=== PATIENT | female | born 1945 | race Caucasian/White ===

== ENCOUNTER 2016-10-25 00:23 | Emergency (ER) | payer MEDICARE ==
[~2016-10-25] VITALS: Ht 167.6 cm; Wt 74.3 kg
[~2016-10-25 00:23] MED LIST: ATEN-104 PO; BIOTCAP PO; CATALYN PO; CHOL50006 PO; CITA20 PO; CITRTAB8 PO; HYDRO25 PO; LAMO100 PO; LISI-360 PO; LORTA5 PO; MEVA40TA6 PO; NEUR100C PO; PROT40TA PO; TRAZ50TA4 PO; ZOFR4TAB3 SL
[2016-10-25 00:32] VITALS: BP 109/70; PULSE 78; RESP 16; TEMP 98.8; O2SAT 94
[2016-10-25] MEDS ORDERED: ATEN100T PO (01:24)
[2016-10-25] MEDS ORDERED: BIOTCAP PO (01:25)
[2016-10-25] MEDS ORDERED: VITA100064 PO (01:27)
[2016-10-25] MEDS ORDERED: CALC250T PO (01:27)
[2016-10-25] MEDS ORDERED: GABA300C5 PO (01:28)
[2016-10-25] MEDS ORDERED: HYDR-3516 PO (01:29)
[2016-10-25] MEDS ORDERED: LISI10TA3 PO (01:29)
[2016-10-25] MEDS ORDERED: PANT40TA3 PO (01:30)
[2016-10-25] MEDS ORDERED: CITA20TA4 PO (01:30)
[2016-10-25] MEDS ORDERED: TRAZ50TA12 PO (01:30)
[2016-10-25] MEDS ORDERED: LOVA40TA PO (01:30)
[2016-10-25] MEDS ORDERED: LAMO100T PO (01:31)
[2016-10-25] MEDS ORDERED: MELO7.5T4 PO (01:31)
[2016-10-25] MEDS ORDERED: LAMO25TA PO (01:31)
[2016-10-25] MEDS ORDERED: REST0.05 EACH EYE (01:32)
[2016-10-25] MEDS ORDERED: LYRI100C PO (01:32)
--- NOTE | 2016-10-25 01:44 | PD ---
HPI Chief Complaint: Fall Time Seen by Provider: 01:41 Travel History International Travel<30 days: No Contact w/Intl Traveler<30days: No Traveled to known affect area: No History of Present Illness HPI The patient is a 71-year-old female that fell Thursday and has right anterior rib pain since. She denies any fever or hemoptysis. She denies any shortness of breath. She has 1 spot on the anterior ribs that is tender. PFSH Past Medical History Asthma: No Blood Disorders: No Anxiety: Yes Depression: No Heart Rhythm Problems: Yes (PVC'S) Cancer: No Cardiac Catheterization: Yes (2009, [place];2012, 4 total) Cardiovascular Problems: Yes High Cholesterol: Yes Chemotherapy: No Chest Pain: Yes Congestive Heart Failure: No COPD: No Diabetes: Yes Patient Takes Glucophage: No Diminished Hearing: No Endocrine: No Gastrointestinal Disorders: Yes (GERD) GERD: Yes Gout: Yes Genitourinary: Yes (CKD STAGE 3) Hypertension: Yes Immune Disorder: No Implanted Vascular Access Dvce: No Medical other: Yes (HIGH CHOLESTEROL) Musculoskeletal: No Neurologic: No Psychiatric: No Reproductive: No Respiratory: Yes (BRONCHITIS) Immunizations Current: Yes Radiation Therapy: No Renal Failure: Yes (CHRONIC) Sleep Apnea: Yes Thyroid Disease: No Triglycerides - High: Yes Tetanus Vaccination: < 5 Years Influenza Vaccination: Yes Menopausal: Yes : 4 Para: 4 Past Surgical History Abdominal Surgery: Yes (GASTRIC BYPASS 2013) Section: Yes (X 2 ) Coronary Artery Bypass Graft: No Gynecologic Surgery: Yes (C SECTIONX2, HYSTERECTOMY) Hysterectomy: Yes Joint Replacement: No Pacemaker: No Tonsillectomy: Yes Other Surgery: Yes (RIGHT BREAST LUMPECTOMY X 2) Family History Family Myocardial Infarction: Yes Social History Alcohol Use: Yes (Occasionally) Tobacco Use: No Substance Use: No Allergies-Medications (Allergen,Severity, Reaction): Coded Allergies: Compazine (Verified Allergy, Severe, ANAPHYLAXIS, 10/25/16) Erythromycin (Verified Allergy, Severe, Colitis, 10/25/16) Lidocaine (Verified Allergy, Severe, Heart Racing, 10/25/16) IV Lidocaine Macrodantin (Verified Allergy, Severe, RASH, 10/25/16) Penicillin (Verified Allergy, Severe, WELTS, 10/25/16) Azithromycin (Verified Adverse Reaction, Intermediate, COLITIS, 10/25/16) Reported Meds & Prescriptions Reported Meds & Active Scripts Active Reported Lyrica (Pregabalin) 100 Mg Cap 100 Mg PO BID Restasis Opth Drops (Cyclosporine Opth Drops) 0.05% Emul 1 Drop EACH EYE BID Meloxicam 7.5 Mg Tab 7.5 Mg PO DAILY Lamotrigine 25 Mg Tab 25 Mg PO DAILY Lamotrigine 100 Mg Tab 100 Mg PO HS Citalopram (Citalopram Hydrobromide) 20 Mg Tab 20 Mg PO DAILY Trazodone (Trazodone HCl) 50 Mg Tab 50 Mg PO HS Pantoprazole (Pantoprazole Sodium) 40 Mg Tab 40 Mg PO DAILY Lovastatin 40 Mg Tab 40 Mg PO DAILY Lisinopril 10 Mg Tab 10 Mg PO DAILY Hydrocodone-Acetaminophen 5-325 mg Tab 1 Tab PO Q6H PRN Gabapentin 300 Mg Cap 300 Mg PO TID Vitamin D (Cholecalciferol) 1,000 Unit Tab 1,000 Units PO DAILY Calcium Citrate 250 Mg Tab 250 Mg PO QID Biotin 5 Mg Cap 5 Mg PO Atenolol 100 Mg Tab 100 Mg PO DAILY Review of Systems Except as stated in HPI: all other systems reviewed are Neg Physical Exam Narrative GENERAL: The patient is alert, oriented 3 and slight apparent distress with her right chest wall pain. SKIN: Warm and dry. HEAD: Atraumatic. Normocephalic. EYES: Pupils equal and round. No scleral icterus. No injection or drainage. ENT: No nasal bleeding or discharge. Mucous membranes pink and moist. NECK: Trachea midline. No JVD. CARDIOVASCULAR: Regular rate and rhythm. No murmur appreciated. RESPIRATORY: No accessory muscle use. Clear to auscultation. Breath sounds equal bilaterally. There is tenderness on the right anterior chest wall at 1 spot. No bony deformity is noted and no flail is noted. GASTROINTESTINAL: Abdomen soft, non-tender, nondistended. Hepatic and splenic margins not palpable. MUSCULOSKELETAL: No obvious deformities. No clubbing. No cyanosis. No edema. NEUROLOGICAL: Awake and alert. No obvious cranial nerve deficits. Motor grossly within normal limits. Normal speech. PSYCHIATRIC: Appropriate mood and affect; insight and judgment normal. Data Data Last Documented VS Vital Signs Date Time Temp Pulse Resp B/P Pulse Ox O2 Delivery O2 Flow Rate FiO2 10/25/16 02:05 61 20 197/92 99 Room Air 10/25/16 00:32 98.8 Orders Chest, Pa & Lat (10/25/16 01:41) MDM Medical Decision Making Medical Screen Exam Complete: Yes Emergency Medical Condition: Yes Medical Record Reviewed: Yes Interpretation(s) The chest x-ray shows no acute disease. Differential Diagnosis Fractured rib, chest wall contusion, pneumothoraxunlikely, flail chest at age extremely unlikely, pulmonary contusion Narrative Course The patient likely has an occult rib fracture. She is point tender on one spot on the anterior ribs but this area is not visualized on the chest x-ray because the ribs are noncalcified there. There is no evidence of pulmonary contusion, flail chest or pneumothorax. Diagnosis Primary Impression: Chest wall contusion Additional Instructions: As we discussed, cough and deep breathe at home because this is your lungs clean themselves out. If you start having high fevers or shortness of breath he may have a pneumonia or collapsed lung. Your chest x-ray is normal tonight. Take the hydrocodone that you have at home. Disposition: 01 DISCHARGE HOME Condition: Stable Pramod Hoang MD Oct 25, 2016 01:44
[2016-10-25 02:05] VITALS: BP 197/92; PULSE 61; RESP 20; O2SAT 99
--- NOTE | 2016-10-25 02:24 | RADHPO ---
EXAM DATE/TIME: 10/25/2016 02:06 [facility] COMPARISON: No previous studies available for comparison. INDICATIONS : Right anterior chest pain post fall from chair. MEDICAL HISTORY : None. SURGICAL HISTORY : None. ENCOUNTER: Initial ACUITY: 3 days PAIN SCORE: 7/10 LOCATION: Right chest FINDINGS: PA and lateral views of the chest demonstrate the lungs to be symmetrically aerated without evidence of mass, infiltrate or effusion. The cardiomediastinal contours are unremarkable. Osseous structure s are intact. CONCLUSION: No acute disease. Roderick Mcdermott Jr., MD on October 25, 2016 at 2:22 Board Certified Radiologist. This report was verified electronically.
[2016-10-25] MEDS ORDERED: SODIUM CHLOR 0.9% 1000 ML INJ 1,000 ML IV SCH (02:52)
[2016-10-25] MEDS ORDERED: ONDANSETRON HCL 4 MG/2 ML VIAL IVP ONE (03:00)
[2016-10-25] MEDS ORDERED: SODIUM CHLORIDE 0.9% FLUSH 10 ML FLUSH IV FLUSH PRN (03:00)
[2016-10-25 03:01] VITALS: BP 150/76; PULSE 85; RESP 18; O2SAT 98
== END 2016-10-25 03:13 | disposition home or self-care (01) ==
LOC: PHED 00:23
DX: S20.211A Contusion of right front wall of thorax, initial encounter (principal); W19.XXXA Unspecified fall, initial encounter
CPT/HCPCS: 71020; 99283

== ENCOUNTER 2017-09-14 14:22 | Observation (INO) | payer MEDICARE ==
[~2017-09-14] VITALS: Ht 167.6 cm; Wt 73.0 kg
[~2017-09-14 14:22] MED LIST changes: -ATEN-104 PO; +ATEN100T PO; +CALC250T PO; -CATALYN PO; -CHOL50006 PO; -CITA20 PO; +CITA20TA4 PO; -CITRTAB8 PO; +GABA300C5 PO; +HYDR-3516 PO; -HYDRO25 PO; -LAMO100 PO; +LAMO100T PO; +LAMO25TA PO; -LISI-360 PO; +LISI10TA3 PO; -LORTA5 PO; +LOVA40TA PO; +LYRI100C PO; +MELO7.5T27 PO; -MEVA40TA6 PO; -NEUR100C PO; +PANT40TA3 PO; -PROT40TA PO; +REST0.05 EACH EYE; +TRAZ50TA12 PO; -TRAZ50TA4 PO; +VITA100064 PO; -ZOFR4TAB3 SL
[2017-09-14 14:24] VITALS: BP 136/64; PULSE 64; RESP 15; TEMP 98.3; O2SAT 100
[2017-09-14 16:00] VITALS: O2SAT 100
--- NOTE | 2017-09-14 16:12 | PD ---
HPI Chief Complaint: Dizziness Time Seen by Provider: 15:39 Travel History International Travel<30 days: No Contact w/Intl Traveler<30days: No Traveled to known affect area: No History of Present Illness HPI 72-year-old female here for evaluation of intermittent episodes of lightheadedness/dizziness/chest tightness over the last 2 weeks. The patient reports having near-syncopal episodes over the last 2 weeks, however has not actually syncopized. No fevers, chills, cough, or recent illness. At time of my assessment the patient reports feeling well. No chest pain or dyspnea. She denies dysuria or urinary frequency. She reports that she had a cardiac catheter 2 years ago which was reportedly normal. No paresthesias or motor deficits. No visual disturbances. No melena or hematochezia. PFSH Past Medical History Asthma: No Blood Disorders: No Anxiety: Yes Depression: No Heart Rhythm Problems: Yes (PVC'S) Cancer: No Cardiac Catheterization: Yes (2009, [place];2012, 4 total) Cardiovascular Problems: Yes (HTN) High Cholesterol: Yes Chemotherapy: No Chest Pain: Yes Congestive Heart Failure: No COPD: No Diabetes: Yes Patient Takes Glucophage: No Diminished Hearing: No Endocrine: No Gastrointestinal Disorders: Yes (GERD) GERD: Yes Gout: Yes Genitourinary: Yes (CKD STAGE 3) Hypertension: Yes Immune Disorder: No Implanted Vascular Access Dvce: No Medical other: Yes (HIGH CHOLESTEROL) Musculoskeletal: No Neurologic: No Psychiatric: No Reproductive: No Respiratory: Yes (BRONCHITIS) Immunizations Current: Yes Radiation Therapy: No Renal Failure: Yes (CHRONIC) Sleep Apnea: Yes Thyroid Disease: No Triglycerides - High: Yes Tetanus Vaccination: < 5 Years Influenza Vaccination: Yes ?: Not Menopausal: Yes : 4 Para: 4 Past Surgical History Abdominal Surgery: Yes (GASTRIC BYPASS 2014) Section: Yes (X 2 ) Coronary Artery Bypass Graft: No Gynecologic Surgery: Yes (C SECTIONX2, HYSTERECTOMY) Hysterectomy: Yes Joint Replacement: No Pacemaker: No Tonsillectomy: Yes Other Surgery: Yes (RIGHT BREAST LUMPECTOMY X 2) Family History Family Myocardial Infarction: Yes Social History Alcohol Use: Yes (Occasionally) Tobacco Use: No Substance Use: No Allergies-Medications (Allergen,Severity, Reaction): Coded Allergies: erythromycin base (Unverified Allergy, Severe, Colitis, 09/14/17) lidocaine (Unverified Allergy, Severe, Heart Racing, 09/14/17) IV Lidocaine nitrofurantoin (Unverified Allergy, Severe, RASH, 09/14/17) penicillin G (Unverified Allergy, Severe, WELTS, 09/14/17) prochlorperazine (Unverified Allergy, Severe, ANAPHYLAXIS, 09/14/17) azithromycin (Unverified Adverse Reaction, Intermediate, COLITIS, 09/14/17) Reported Meds & Prescriptions Reported Meds & Active Scripts Active Reported B12 (Cyanocobalamin) 1,000 Mcg Tab [Calcium] 120 Mg PO DAILY [Bariatric vitamin] 1 Tab PO TID Meloxicam 7.5 Mg Tab 7.5 Mg PO DAILY Lamotrigine 25 Mg Tab 25 Mg PO DAILY Lamotrigine 100 Mg Tab 100 Mg PO HS Citalopram (Citalopram Hydrobromide) 20 Mg Tab 20 Mg PO DAILY Trazodone (Trazodone HCl) 50 Mg Tab 50 Mg PO HS Pantoprazole (Pantoprazole Sodium) 40 Mg Tab 40 Mg PO DAILY Lovastatin 40 Mg Tab 40 Mg PO DAILY Lisinopril 10 Mg Tab 10 Mg PO DAILY Gabapentin 300 Mg Cap 300 Mg PO QID Atenolol 100 Mg Tab 100 Mg PO DAILY PRN Review of Systems Except as stated in HPI: all other systems reviewed are Neg Physical Exam Narrative GENERAL: Well-developed, well-nourished, comfortable, no acute distress. SKIN: Focused skin assessment warm/dry. Diffuse pallor. HEAD: Atraumatic. Normocephalic. EYES: Pupils equal and round. No scleral icterus. No injection or drainage. ENT: Mucous membranes pink and moist. NECK: Trachea midline. No JVD. CARDIOVASCULAR: Regular rate and rhythm. RESPIRATORY: No accessory muscle use. Clear to auscultation. Breath sounds equal bilaterally. GASTROINTESTINAL: Abdomen soft, non-tender, nondistended. MUSCULOSKELETAL: No obvious deformities. No clubbing. No cyanosis. No edema. NEUROLOGICAL: Awake and alert. No obvious cranial nerve deficits. Motor grossly within normal limits. Normal speech. No focal deficits. PSYCHIATRIC: Appropriate mood and affect; insight and judgment normal. Data Data Last Documented VS Vital Signs Date Time Temp Pulse Resp B/P (MAP) Pulse Ox O2 Delivery O2 Flow Rate FiO2 09/14/17 19:16 62 12 187/90 (122) 100 Room Air 09/14/17 14:24 98.3 Orders Orders Electrocardiogram (09/14/17 16:05) Complete Blood Count With Diff (09/14/17 16:05) Comprehensive Metabolic Panel (09/14/17 16:05) Ckmb (Isoenzyme) Profile (09/14/17 16:05) Troponin I (09/14/17 16:05) Act Partial Throm Time (Ptt) (09/14/17 16:05) Prothrombin Time / Inr (Pt) (09/14/17 16:05) Urinalysis - C+S If Indicated (09/14/17 16:05) Ecg Monitoring (09/14/17 16:05) Iv Access Insert/Monitor (09/14/17 16:05) Oximetry (09/14/17 16:05) Sodium Chloride 0.9% Flush (Ns Flush) (09/14/17 16:15) Sodium Chlorid 0.9% 500 Ml Inj (Ns 500 M (09/14/17 17:15) Ct Brain W/O Iv Contrast(Rout) (09/14/17 ) Lisinopril (Prinivil) (09/14/17 19:30) Aspirin Chew (Aspirin Chew) (09/14/17 19:30) Labs Laboratory Tests Test 09/14/17 16:30 White Blood Count 9.4 TH/MM3 Red Blood Count 4.05 MIL/MM3 Hemoglobin 10.9 GM/DL Hematocrit 32.2 % Mean Corpuscular Volume 79.3 FL Mean Corpuscular Hemoglobin 26.8 PG Mean Corpuscular Hemoglobin Concent 33.8 % Red Cell Distribution Width 17.0 % Platelet Count 258 TH/MM3 Mean Platelet Volume 7.9 FL Neutrophils (%) (Auto) 61.9 % Lymphocytes (%) (Auto) 28.2 % Monocytes (%) (Auto) 6.7 % Eosinophils (%) (Auto) 2.1 % Basophils (%) (Auto) 1.1 % Neutrophils # (Auto) 5.8 TH/MM3 Lymphocytes # (Auto) 2.7 TH/MM3 Monocytes # (Auto) 0.6 TH/MM3 Eosinophils # (Auto) 0.2 TH/MM3 Basophils # (Auto) 0.1 TH/MM3 CBC Comment DIFF FINAL Differential Comment Prothrombin Time 10.0 SEC Prothromb Time International Ratio 1.0 RATIO Activated Partial Thromboplast Time 24.2 SEC Urine Color YELLOW Urine Turbidity SLIGHT Urine pH 5.5 Urine Specific [place] 1.021 Urine Protein NEG mg/dL Urine Glucose (UA) NEG mg/dL Urine Ketones TRACE mg/dL Urine Occult Blood NEG Urine Nitrite NEG Urine Bilirubin NEG Urine Leukocyte Esterase TRACE Urine WBC 0-2 /hpf Urine Squamous Epithelial Cells 0-5 /hpf Urine Calcium Oxalate Crystals MANY /hpf Urine Amorphous Sediment MOD Urine Mucus FEW /lpf Microscopic Urinalysis Comment CULT NOT INDICATED Blood Urea Nitrogen 22 MG/DL Creatinine 1.50 MG/DL Random Glucose 104 MG/DL Total Protein 7.3 GM/DL Albumin 3.8 GM/DL Calcium Level 8.4 MG/DL Alkaline Phosphatase 101 U/L Aspartate Amino Transf (AST/SGOT) 22 U/L Alanine Aminotransferase (ALT/SGPT) 13 U/L Total Bilirubin 0.2 MG/DL Sodium Level 137 MEQ/L Potassium Level 3.6 MEQ/L Chloride Level 104 MEQ/L Carbon Dioxide Level 24.7 MEQ/L Anion Gap 8 MEQ/L Estimat Glomerular Filtration Rate 34 ML/MIN Total Creatine Kinase 50 U/L Troponin I LESS THAN 0.02 NG/ML [facility] Medical Decision Making Medical Screen Exam Complete: Yes Emergency Medical Condition: Yes Medical Record Reviewed: Yes Interpretation(s) EKG: Sinus, rate 58, normal axis, normal intervals, occasional PVC, slight ST depression and T-wave inversions in precordial leads, unchanged from prior. Differential Diagnosis Anemia, metabolic abnormality, UTI, ACS, electrolyte abnormality Narrative Course Initial vital signs show heart rate 64, blood pressure 136/64, pulse ox 100% on room air, oral temp of 98.3F. CBC: WBC 9.4, hemoglobin 10.9, hematocrit 32.2, platelets 258. CMP is remarkable for BUN 22, creatinine 1.5, GFR 34, otherwise unremarkable. Cardiac enzymes are negative. UA shows oxalate crystals, not suggestive of UTI. CT head: Normal exam for patient of this age. When the patient returned from CT her blood pressure was notably elevated. She was complaining of headache and substernal chest discomfort. She does have an unusual EKG with T-wave inversions and ST depressions in her precordial leads, however these were present on prior EKGs. Patient is very concerned about her heart, stating that she is having occasional pains that radiate up into her jaw and neck. She was given a dose of lisinopril as she is on lisinopril for her elevated blood pressure here in the emergency department. She will be given a dose of aspirin and admitted to the chest pain center for further cardiac evaluation. Case discussed with hospitalist Dr. Romero who will admit the patient to the hospitalist service. Diagnosis Primary Impression: Chest pain Qualified Codes: R07.9 - Chest pain, unspecified Additional Impression: Uncontrolled hypertension Admitting Information Admitting Physician Requests: Rashid Moncada MD Sep 14, 2017 16:12
[2017-09-14] MEDS ORDERED: SODIUM CHLORIDE 0.9% FLUSH 10 ML FLUSH IVF PRN (16:15)
[2017-09-14] MEDS ORDERED: Bariatric vitamin PO (16:27)
[2017-09-14] MEDS ORDERED: Calcium PO (16:27)
[2017-09-14] MEDS ORDERED: CYAN1TAB24 (16:27)
[2017-09-14 16:50] LABS: AUTOMATED NEUTROPHIL # 5.8 TH/MM3 (1.8-7.7); BASOPHIL # 0.1 TH/MM3 (0-0.2); BASOPHIL % 1.1 % (0.0-2.0); EOSINOPHIL # 0.2 TH/MM3 (0-0.4); EOSINOPHIL % 2.1 % (0.0-4.0); HEMATOCRIT 32.2 % (35.0-46.0); HEMOGLOBIN 10.9 GM/DL (11.6-15.3); LYMPH % 28.2 % (9.0-44.0); LYMPHOCYTE # 2.7 TH/MM3 (1.0-4.8); MEAN CELL VOLUME 79.3 FL (80.0-100.0); MEAN CORPUSCULAR HEMOGLOBIN 26.8 PG (27.0-34.0); MEAN CORPUSCULAR HGB CONC 33.8 % (32.0-36.0); MEAN PLATELET VOLUME 7.9 FL (7.0-11.0); MONO % 6.7 % (0.0-8.0); MONOCYTE # 0.6 TH/MM3 (0-0.9); NEUT % 61.9 % (16.0-70.0); PLATELET COUNT 258 TH/MM3 (150-450); RED BLOOD COUNT 4.05 MIL/MM3 (4.00-5.30); WHITE BLOOD COUNT 9.4 TH/MM3 (4.0-11.0)
[2017-09-14 16:56] LABS: BILIRUBIN, URINE NEG (NEG); BLOOD, URINE NEG (NEG); GLUCOSE,URINE NEG (NEG); KETONE, URINE TRACE mg/dL (NEG); NITRITE,URINE NEG (NEG); PH, URINE 5.5 (5.0-8.5); URINE LEUKOCYTE ESTERASE TRACE (NEG)
[2017-09-14 17:00] LABS: CHLORIDE 104 MEQ/L (98-107); SODIUM (NA) 137 MEQ/L (136-145)
[2017-09-14 17:03] LABS: CALCIUM 8.4 MG/DL (8.5-10.1)
[2017-09-14 17:04] LABS: ALBUMIN 3.8 GM/DL (3.4-5.0); BICARBONATE 24.7 MEQ/L (21.0-32.0); BLOOD UREA NITROGEN 22 MG/DL (7-18); GLUCOSE,RANDOM 104 MG/DL (74-106)
[2017-09-14 17:07] LABS: ALT (GPT) 13 U/L (10-53); AST (GOT) 22 U/L (15-37); GLOMERULAR FILTRATION RATE 34 ML/MIN (>89)
[2017-09-14 17:08] LABS: TOTAL BILIRUBIN ADULT 0.2 MG/DL (0.2-1.0); TOTAL PROTEIN 7.3 GM/DL (6.4-8.2)
[2017-09-14 17:10] LABS: ALKALINE PHOSPHATASE 101 U/L (45-117)
[2017-09-14 17:11] LABS: MUCUS URINE FEW /lpf (OCC); URINE COLOR YELLOW (YELLW/STRAW); WBC, URINE 0-2 /hpf (0-5)
[2017-09-14 17:12] LABS: AMORPHOUS SEDIMENT, URINE MOD; CALCIUM OXALATE CRYSTALS,URINE MANY /hpf; SQUAMOUS EPITHELIAL CELL URINE 0-5 /hpf (0-5); TROPONIN I LESS THAN 0.02 NG/ML (0.02-0.05)
[2017-09-14] MEDS ORDERED: SODIUM CHLORID 0.9% 500 ML INJ 500 ML IV ONE (17:15)
--- NOTE | 2017-09-14 18:33 | RADRPT ---
EXAM DATE/TIME: 09/14/2017 18:18 [facility] COMPARISON: No previous studies available for comparison. INDICATIONS : Intermittent dizziness and low blood pressure for two weeks. RADIATION DOSE: 63.87 CTDIvol (mGy) MEDICAL HISTORY : Hypertension. Renal failure, chronic. Hypercholesterolemia. SURGICAL HISTORY : Hysterectomy. ENCOUNTER: Initial ACUITY: 2 weeks PAIN SCALE: 0/10 LOCATION: cranial TECHNIQUE: Multiple contiguous axial images were obtained of the head. Using automated exposure control and adj ustment of the mA and/or kV according to patient size, radiation dose was kept as low as reasonably a chievable to obtain optimal diagnostic quality images. DICOM format image data is available electro nically for review and comparison. FINDINGS: CEREBRUM: The ventricles are normal for age. No evidence of midline shift, mass lesion, hemorrhage or acute in farction. No extra-axial fluid collections are seen. POSTERIOR FOSSA: The cerebellum and brainstem are intact. The 4th ventricle is midline. The cerebellopontine angle i s unremarkable. EXTRACRANIAL: The visualized portion of the orbits is intact. SKULL: The calvaria is intact. No evidence of skull fracture. CONCLUSION: Normal examination for a patient of this age. Fredo Lemos MD on September 14, 2017 at 18:29 Board Certified Radiologist. This report was verified electronically.
[2017-09-14 18:35] VITALS: BP 200/108; PULSE 61; RESP 18; O2SAT 100
[2017-09-14 19:16] VITALS: BP 187/90; PULSE 62; RESP 12; O2SAT 100
[2017-09-14] MEDS ORDERED: LISINOPRIL 20 MG TAB PO ONE (19:30)
[2017-09-14] MEDS ORDERED: ASPIRIN 81 MG CHEW TAB PO ONE (19:30)
[2017-09-14] MEDS ORDERED: NALOXONE HCL 0.4 MG/ML AMP IV PUSH PRN (20:00)
[2017-09-14] MEDS ORDERED: SODIUM CHLORIDE 0.9% FLUSH 10 ML FLUSH IV FLUSH PRN (20:00)
[2017-09-14] MEDS: SODIUM CHLORIDE 0.9% FLUSH 10 ML FLUSH IV FLUSH SCH (21:00)
[2017-09-14 21:03] VITALS: BP 158/94; PULSE 68; RESP 16; O2SAT 99
[2017-09-14 22:17] VITALS: BP 159/85; PULSE 87; RESP 16; TEMP 97.4; O2SAT 94
[2017-09-14 23:26] LABS: TROPONIN I LESS THAN 0.02 NG/ML (0.02-0.05)
[2017-09-15] MEDS ORDERED: GABAPENTIN 300 MG CAP PO ONE (02:45)
[2017-09-15 04:00] VITALS: BP 163/82; PULSE 63; RESP 16; TEMP 96.5; O2SAT 97
[2017-09-15 05:43] LABS: AUTOMATED NEUTROPHIL # 3.2 TH/MM3 (1.8-7.7); BASOPHIL # 0.1 TH/MM3 (0-0.2); BASOPHIL % 0.8 % (0.0-2.0); EOSINOPHIL # 0.3 TH/MM3 (0-0.4); EOSINOPHIL % 3.6 % (0.0-4.0); HEMATOCRIT 33.2 % (35.0-46.0); HEMOGLOBIN 10.6 GM/DL (11.6-15.3); LYMPH % 41.6 % (9.0-44.0); MEAN CORPUSCULAR HEMOGLOBIN 25.3 PG (27.0-34.0); MEAN CORPUSCULAR HGB CONC 32.1 % (32.0-36.0); MEAN PLATELET VOLUME 8.3 FL (7.0-11.0); MONO % 7.7 % (0.0-8.0); MONOCYTE # 0.5 TH/MM3 (0-0.9); NEUT % 46.3 % (16.0-70.0); PLATELET COUNT 253 TH/MM3 (150-450); RED CELL DISTRIBUTION WIDTH 16.8 % (11.6-17.2); WHITE BLOOD COUNT 7.1 TH/MM3 (4.0-11.0)
[2017-09-15 05:58] LABS: BICARBONATE 26.9 MEQ/L (21.0-32.0); CALCIUM 8.3 MG/DL (8.5-10.1)
[2017-09-15 06:02] LABS: CREATININE 1.3 MG/DL (0.50-1.00)
[2017-09-15 06:08] LABS: TROPONIN I LESS THAN 0.02 NG/ML (0.02-0.05)
[2017-09-15] MEDS ORDERED: ATENOLOL 100 MG TAB PO PRN (07:30)
[2017-09-15 08:00] VITALS: BP 180/87; PULSE 51; RESP 16; TEMP 98.6; O2SAT 98
[2017-09-15] MEDS ORDERED: ATENOLOL 50 MG TAB PO PRN (08:00)
[2017-09-15] MEDS ORDERED: REGADENOSON INJ 0.4 MG/5 ML SYR IV ONE (08:23)
--- NOTE | 2017-09-15 08:27 | HHI.HP ---
[facility] Service [facility] Primary Care Physician Abel Villegas MD Admission Diagnosis chest pain, uncontrolled hypertension Diagnoses: (1) Chest pain Diagnosis: Principal (2) Uncontrolled hypertension Diagnosis: Principal (3) Near syncope Diagnosis: Principal Chief Complaint: Chest pain, lightheadedness, dizziness Travel History International Travel<30 Days: No Contact w/Intl Traveler <30 Da: No Traveled to Known Affected Are: No History of Present Illness 72-year-old female with known history of hypertension, hyperlipidemia , diabetes, arthritis who presented to hospital because of a two-week history of lightheadedness, dizziness, near syncope, chest tightness. Patient indicates that her last 2 weeks she's been having intermittent discomfort which she indicates starts as a lightheadedness and dizziness. She started developing tightness in the neck which then turns into a tightness in the chest with some numbness and tingling in the left upper extremity. Patient states that these episodes can last for a minute at a time. Happening a couple times a day. She states that she's had multiple episodes when she is out in public where she had to put her head down because she thought she is going to pass out. She states that whenever she is around a blood pressure cuff she checks her blood pressure and it is usually low. During those episodes she does not take her blood pressure medication that day. Patient denied any nausea, vomiting, shortness of breath, dyspnea, diaphoresis. Because her symptoms did not improve she came to emergency department for evaluation. Patient states that she has had multiple cardiac workups. Records indicate she has had 2 previous stress test and she states that she has had a cardiac catheterization before, which did not find any abnormality. Patient states that the last ctc operator who saw her in the hospital is Dr. max. She does not indicate that she is followed up with him since hospitalization. Patient does follow with Dr. Villegas. Last time she saw him was 2 months ago. Patient had workup done emergency department which was unremarkable and as requested by the ER physician the patient be observed in the chest pain center. Review of Systems Constitutional: COMPLAINS OF: Dizziness Cardiovascular: COMPLAINS OF: Chest pain, Syncope (near syncope) Neurologic: COMPLAINS OF: Paresthesias (left upper extremity) Except as stated in HPI: all other systems reviewed are Neg Past Family Social History Past Medical History Hypertension Hyperlipidemia Diabetes Peripheral neuropathy Arthritis Past Surgical History Gastric bypass surgery Breast biopsy 2 Abdominoplasty Right eye surgery Reported Medications Reported Meds & Active Scripts Active Reported B12 (Cyanocobalamin) 1,000 Mcg Tab [Calcium] 120 Mg PO DAILY [Bariatric vitamin] 1 Tab PO TID Meloxicam 7.5 Mg Tab 7.5 Mg PO DAILY Lamotrigine 25 Mg Tab 25 Mg PO DAILY Lamotrigine 100 Mg Tab 100 Mg PO HS Citalopram (Citalopram Hydrobromide) 20 Mg Tab 20 Mg PO DAILY Trazodone (Trazodone HCl) 50 Mg Tab 50 Mg PO HS Pantoprazole (Pantoprazole Sodium) 40 Mg Tab 40 Mg PO DAILY Lovastatin 40 Mg Tab 40 Mg PO DAILY Lisinopril 10 Mg Tab 10 Mg PO DAILY Gabapentin 300 Mg Cap 300 Mg PO QID Atenolol 100 Mg Tab 100 Mg PO DAILY PRN Allergies: Coded Allergies: erythromycin base (Unverified Allergy, Severe, Colitis, 09/14/17) lidocaine (Unverified Allergy, Severe, Heart Racing, 09/14/17) IV Lidocaine nitrofurantoin (Unverified Allergy, Severe, RASH, 09/14/17) penicillin G (Unverified Allergy, Severe, WELTS, 09/14/17) prochlorperazine (Unverified Allergy, Severe, ANAPHYLAXIS, 09/14/17) azithromycin (Unverified Adverse Reaction, Intermediate, COLITIS, 09/14/17) Family History Reviewed is significant for having early onset heart disease, brother at age 54 from myocardial infarction, her father and aunt both from aneurysms, Social History Patient states that she does drink 2 glasses of wine frequently. Denies any tobacco or illicit drugs Physical Exam Vital Signs Vital Signs Date Time Temp Pulse Resp B/P (MAP) Pulse Ox O2 Delivery O2 Flow Rate FiO2 09/15/17 04:00 96.5 63 16 163/82 (109) 97 09/14/17 22:17 97.4 87 16 159/85 (109) 94 09/14/17 21:52 72 16 100 09/14/17 21:03 68 16 158/94 (115) 99 Room Air 09/14/17 19:16 62 12 187/90 (122) 100 Room Air 09/14/17 18:35 61 18 200/108 (138) 100 Room Air 09/14/17 16:00 100 Room Air 09/14/17 14:24 98.3 64 15 136/64 (88) 100 Physical Exam GENERAL: Well-developed, well-nourished, in no acute distress. alert and orientated HEENT: Head is normocephalic without any lesions or masses noted. Facial features are symmetric. Eyes: Pupils equal round reactive to light. Extraocular muscles are intact. Conjunctivae were clear. Oropharyngeal: Pharynx without any erythema edema. Tongue is midline without deviation. Buccal mucosa is moist without any masses or lesions NECK: Supple without any masses. Trachea midline no deviation. No JVD, no bruits are appreciated CARDIAC: Regular rhythm, regular rate. S1/S2 are heard. No murmurs gallops or rubs. LUNGS: Clear to auscultation bilaterally. No wheeze, rhonchi or rales. No use of accessory muscles on inspiration or expiration. ABDOMEN: Soft, nontender. Nondistended. Bowel sounds heard in all 4 quadrants. No organomegaly or masses. Negative rebound, negative guarding EXTREMITIES: No edema, pulses are equal bilaterally. No cyanosis or clubbing NEUROLOGY: Mood and affect appear appropriate. Cranial nerves II through XII grossly intact. Muscle strength 5/5 in upper and lower extremities bilaterally. Deep tendon reflexes are 2+ in upper and lower extremities bilaterally. Laboratory Laboratory Tests Test 09/14/17 16:30 09/14/17 22:40 09/15/17 04:50 White Blood Count 9.4 7.1 Red Blood Count 4.05 4.20 Hemoglobin 10.9 10.6 Hematocrit 32.2 33.2 Mean Corpuscular Volume 79.3 79.0 Mean Corpuscular Hemoglobin 26.8 25.3 Mean Corpuscular Hemoglobin Concent 33.8 32.1 Red Cell Distribution Width 17.0 16.8 Platelet Count 258 253 Mean Platelet Volume 7.9 8.3 Neutrophils (%) (Auto) 61.9 46.3 Lymphocytes (%) (Auto) 28.2 41.6 Monocytes (%) (Auto) 6.7 7.7 Eosinophils (%) (Auto) 2.1 3.6 Basophils (%) (Auto) 1.1 0.8 Neutrophils # (Auto) 5.8 3.2 Lymphocytes # (Auto) 2.7 3.0 Monocytes # (Auto) 0.6 0.5 Eosinophils # (Auto) 0.2 0.3 Basophils # (Auto) 0.1 0.1 CBC Comment DIFF FINAL DIFF FINAL Differential Comment Prothrombin Time 10.0 Prothromb Time International Ratio 1.0 Activated Partial Thromboplast Time 24.2 Urine Color YELLOW Urine Turbidity SLIGHT Urine pH 5.5 Urine Specific [place] 1.021 Urine Protein NEG Urine Glucose (UA) NEG Urine Ketones TRACE Urine Occult Blood NEG Urine Nitrite NEG Urine Bilirubin NEG Urine Leukocyte Esterase TRACE Urine WBC 0-2 Urine Squamous Epithelial Cells 0-5 Urine Calcium Oxalate Crystals MANY Urine Amorphous Sediment MOD Urine Mucus FEW Microscopic Urinalysis Comment CULT NOT INDICATED Blood Urea Nitrogen 22 22 Creatinine 1.50 1.30 Random Glucose 104 117 Total Protein 7.3 Albumin 3.8 Calcium Level 8.4 8.3 Alkaline Phosphatase 101 Aspartate Amino Transf (AST/SGOT) 22 Alanine Aminotransferase (ALT/SGPT) 13 Total Bilirubin 0.2 Sodium Level 137 141 Potassium Level 3.6 3.7 Chloride Level 104 108 Carbon Dioxide Level 24.7 26.9 Anion Gap 8 6 Estimat Glomerular Filtration Rate 34 40 Total Creatine Kinase 50 51 128 Troponin I LESS THAN 0.02 LESS THAN 0.02 LESS THAN 0.02 Result Diagram: 09/15/17 0450 09/15/17 0450 Imaging Last Impressions Myocardial Perfusion Scan Nuc Med 09/15/17 0000 Signed Impressions: Service Date/Time: Friday, September 15, 2017 08:06 - CONCLUSION: No redistribution observed to suggest acute ischemia. RISK CATEGORY: Low Roderick Mcdermott Jr., MD Carotid Artery Ultrasound 09/15/17 0000 Signed Impressions: Service Date/Time: Friday, September 15, 2017 09:28 - CONCLUSION: 1. No significant carotid flow-limiting stenosis. 2. Antegrade vertebral artery flow bilaterally. Jonnathan Ronquillo MD Head CT 09/14/17 0000 Signed Impressions: Service Date/Time: Thursday, September 14, 2017 18:18 - CONCLUSION: Normal examination for a patient of this age. MD Rufino Magdaleno VTE Risk Assessment Rufino VTE Risk Assessment: Mod/High Risk (score >= 2) Caprini Risk Assessment Model Point Value = 1 Point Value = 2 Point Value = 3 Point Value = 5 Age 41-60 Minor surgery BMI > 25 kg/m2 Swollen legs Varicose veins or History of unexplained or recurrent spontaneous Oral contraceptives or hormone replacement Sepsis (< 1 month) Serious lung disease, including pneumonia (< 1 month) Abnormal pulmonary function Acute myocardial infarction Congestive heart failure (< 1 month) History of inflammatory bowel disease Medical patient at bed rest Age 61-74 Arthroscopic surgery Major open surgery (> 45 min) Laparoscopic surgery (> 45 min) Malignancy Confined to bed (> 72 hours) Immobilizing plaster cast Central venous access Age >= 75 History of VTE Family history of VTE Factor V Leiden Prothrombin [id number] Lupus anticoagulant Anticardiolipin antibodies Elevated serum homocysteine Heparin-induced thrombocytopenia Other congenital or acquired thrombophilia Stroke (< 1 month) Elective arthroplasty Hip, pelvis, or leg fracture Acute spinal cord injury (< 1 month) Prophylaxis Regimen Total Risk Factor Score Risk Level Prophylaxis Regimen 0-1 Low Early ambulation 2 Moderate Order ONE of the following: *Sequential Compression Device (SCD) *Heparin 5000 units SQ BID 3-4 Higher Order ONE of the following medications: *Heparin 5000 units SQ TID *Enoxaparin/Lovenox 40 mg SQ daily (WT < 150 kg, CrCl > 30 mL/min) *Enoxaparin/Lovenox 30 mg SQ daily (WT < 150 kg, CrCl > 10-29 mL/min) *Enoxaparin/Lovenox 30 mg SQ BID (WT < 150 kg, CrCl > 30 mL/min) AND/OR *Sequential Compression Device (SCD) 5 or more Highest Order ONE of the following medications: *Heparin 5000 units SQ TID (Preferred with Epidurals) *Enoxaparin/Lovenox 40 mg SQ daily (WT < 150 kg, CrCl > 30 mL/min) *Enoxaparin/Lovenox 30 mg SQ daily (WT < 150 kg, CrCl > 10-29 mL/min) *Enoxaparin/Lovenox 30 mg SQ BID (WT < 150 kg, CrCl > 30 mL/min) AND *Sequential Compression Device (SCD) Assessment and Plan Assessment and Plan Chest pain, atypical Patient with increased risk factor to include hypertension, hyperlipidemia, family history of heart disease, diabetes Patient has been ruled out for acute coronary event with serial cardiac enzymes that are negative Serial EKGs do not show any changes, does indicate inverted T waves in anterior lateral leads, however it is the same as compared to 2014 Myocardial perfusion study was unremarkable for any ischemia Results were discussed with the patient, she was notified to follow-up with her primary medical doctor for follow-up Uncontrolled hypertension Home medications were resumed No episodes of hypotension during hospitalization Near syncope, lightheadedness Cardiac etiology has been ruled out Telemetry did not indicate any acute abnormality Echocardiogram indicates normal left ventricle size and function with ejection fraction 55-60% Carotid ultrasound was unremarkable Physical therapy evaluated patient does not indicate any equipment needed, does indicate patient could benefit from outpatient physical therapy. Discharge disposition Discharge home in stable condition Activity: Ad raoul. Diet: Healthy heart diet Medications per medication reconciliation Follow-up primary medical doctor in one week Attending physician note: Patient seen and examined. Agree with above. No further chest pain. Symptoms seem to be anxiety related. Heart is regular on exam. Lungs are clear. Workup is negative including carotid artery ultrasound , echocardiogram, and nuclear stress test. Discharge home in stable condition. I discussed at length with the patient that she should follow-up with her primary care physician for evaluation of anxiety, panic attacks. She also states that she will ask her PCP for a referral to cardiology. Problem Qualifiers (1) Chest pain: Qualified Codes: R07.9 - Chest pain, unspecified Alok Hoang Sep 15, 2017 08:27 Alok Silvestre MD Sep 15, 2017 14:42
[2017-09-15] MEDS ORDERED: CITALOPRAM HYDROBROMIDE 20 MG TAB PO SCH (09:00)
[2017-09-15] MEDS ORDERED: LISINOPRIL 10 MG TAB PO SCH (09:00)
[2017-09-15] MEDS ORDERED: GABAPENTIN 300 MG CAP PO SCH (09:00)
[2017-09-15] MEDS ORDERED: PANTOPRAZOLE SOD 40 MG DELAYED RELEASE TAB PO SCH (09:00)
[2017-09-15] MEDS ORDERED: PRAVASTATIN SOD 40 MG TAB PO SCH (09:00)
--- NOTE | 2017-09-15 09:19 | RADRPT ---
EXAM DATE/TIME: 09/15/2017 08:06 [facility] COMPARISON: No previous studies available for comparison. INDICATIONS : Mid chest pain with dizziness for two weeks. Angina. DOSE: 26.2 mCi Tc99m Myoview at stress. 8.7 mCi Tc99m Myoview at rest. 0.4 mg Lexiscan STRESS SYMPTOMS: Shortness of breath. EJECTION FRACTION: 69% MEDICAL HISTORY : Gastroesophageal reflux disease. Diabetes mellitus type 2. Hypertension. SURGICAL HISTORY : Hysterectomy. section. Gastric bypass. ENCOUNTER: Initial ACUITY: 2 weeks PAIN SCALE: 5/10 LOCATION: Midsternal chest TECHNIQUE: The patient underwent pharmacologic stress with infusion of prescribed dose. Continuous ECG tracing was monitored during stress. Gated SPECT imaging was performed after stress and conventional SPECT i maging was performed at rest. The examination was performed on a SPECT/CT scanner, both attenuation and non-corrected datasets were reviewed. FINDINGS: DISTRIBUTION: The maximum perfused segment at stress is in the lateral wall. PERFUSION STUDY: The pattern of perfusion at stress is within normal limits. GATED STUDY: There is intact wall motion and thickening without hypokinetic or dyskinetic segments. CONCLUSION: No redistribution observed to suggest acute ischemia. RISK CATEGORY: Low Roderick Mcdermott Jr., MD on September 15, 2017 at 9:12 Board Certified Radiologist. This report was verified electronically.
--- NOTE | 2017-09-15 09:23 | HHI.DCPOC ---
Discharge Care Plan Diagnosis: (1) Chest pain (2) Uncontrolled hypertension Goals to Promote Your Health * To prevent worsening of your condition and complications * To maintain your health at the optimal level Directions to Meet Your Goals Take your medications as prescribed Follow your dietary instruction Follow activity as directed Keep your appointments as scheduled Take your immunizations and boosters as scheduled If your symptoms worsen call your PCP, if no PCP go to Urgent Care Center or Emergency Room Smoking is Dangerous to Your Health. Avoid second hand smoke Call the 24-hour hour crisis hotline for domestic abuse at Alok Hoang Sep 15, 2017 09:23
[2017-09-15] MEDS: SODIUM CHLORIDE 0.9% FLUSH 10 ML FLUSH IV FLUSH SCH (09:49)
--- NOTE | 2017-09-15 11:05 | ECHRPT ---
Indication: Dizziness CONCLUSIONS Normal left ventricular size and wall thickness. The left ventricular systolic function is normal wi th an estimated ejection fraction in the range of 55-60%. No definite wall motion abnormalities. Trace mitral valve regurgitation. There is mild tricuspid valve regurgitation. The estimated pulmonary arterial pressure is 24 mmHg. BP: / HR: Rhythm: Sinus MEASUREMENTS (Male / Female) Normal Values Technical Quality:Good 2D ECHO LV Diastolic Diameter PLAX 4.8 cm 4.2 - 5.9 / 3.9 - 5.3 cm LV Systolic Diameter PLAX 4.0 cm IVS Diastolic Thickness 1.2 cm 0.6 - 1.0 / 0.6 - 0.9 cm LVPW Diastolic Thickness 1.2 cm 0.6 - 1.0 / 0.6 - 0.9 cm LV Relative Wall Thickness 0.5 LVOT Diameter 2.0 cm M-MODE Aortic Root Diameter MM 2.8 cm LA Systolic Diameter MM 3.9 cm LA Ao Ratio MM 1.4 AV Cusp Separation MM 2.0 cm DOPPLER AV Peak Velocity 149.0 cm/s AV Peak Gradient 8.9 mmHg LVOT Peak Velocity 92.3 cm/s LVOT Peak Gradient 3.4 mmHg AV Area Cont Eq pk 1.9 cm MR Peak Velocity 507.0 cm/s MR Peak Gradient 102.8 mmHg Mitral E Point Velocity 101.0 cm/s Mitral A Point Velocity 107.0 cm/s Mitral E to A Ratio 0.9 LV E' Lateral Velocity 9.3 cm/s Mitral E to LV E' Lateral Ratio 10.9 LV E' Septal Velocity 7.7 cm/s Mitral E to LV E' Septal Ratio 13.1 TR Peak Velocity 191.0 cm/s TR Peak Gradient 14.6 mmHg Right Atrial Pressure 10.0 mmHg Pulmonary Artery Systolic Pressu 24.6 mmHg Right Ventricular Systolic Press 24.6 mmHg FINDINGS LEFT VENTRICLE Normal left ventricular size and wall thickness. The left ventricular systolic function is normal wi th an estimated ejection fraction in the range of 55-60%. No definite wall motion abnormalities. RIGHT VENTRICLE Normal right ventricular size and systolic function. LEFT ATRIUM The left atrial size is normal. RIGHT ATRIUM The right atrial size is normal. ATRIAL SEPTUM Normal atrial septal thickness without atrial level shunting by limited color doppler interrogation. AORTA The aortic root and proximal ascending aorta are normal in size on limited imaging. MITRAL VALVE Trace mitral valve regurgitation. AORTIC VALVE Trileaflet aortic valve. No aortic valve stenosis or regurgitation. TRICUSPID VALVE There is mild tricuspid valve regurgitation. The estimated pulmonary arterial pressure is 24 mmHg. PULMONARY VALVE No pulmonary valve regurgitation or stenosis. VESSELS The inferior vena cava is normal in size. PERICARDIUM There is a small pericardial effusion present. Corby Arteaga MD (Electronically Signed) Final Date:15 September 2017 11:04
--- NOTE | 2017-09-15 11:47 | RADRPT ---
EXAM DATE/TIME: 09/15/2017 09:28 [facility] COMPARISON: No previous studies available for comparison. INDICATIONS : Dizziness, near syncope. MEDICAL HISTORY : Hypertension. CAD. Hypercholesterol. Hyperlipidemia. HTN. GERD. Renal failure. Kidney stones. Diabetic. SURGICAL HISTORY : Gastric bypass. section. Hysterectomy. Cardiac catheterization. ENCOUNTER: Initial ACUITY: 2 weeks PAIN SCORE: 0/10 LOCATION: Bilateral neck PEAK SYSTOLIC VELOCITIES (cm/sec): ICA/CCA RATIO: Right: 1.1 Left: 1.2 ICA: Right: 114 Left: 105 CCA: Right: 105 Left: 84 ECA: Right: 76 Left: 66 VERTEBRAL: Right: 56 antegrade Left: 57 antegrade Elevated flow velocities and ICA/CCA ratios have been found to correlate with increased degrees of vessel stenosis, calculated as percentage of diameter relative to a normal segment of distal ICA/CCA FINDINGS: RIGHT CAROTID: No significant stenosis is visualized. The waveforms are within normal limits. LEFT CAROTID: No significant stenosis is visualized. The waveforms are within normal limits. VERTEBRAL ARTERIES: Antegrade flow is seen in both vertebral arteries. MISCELLANEOUS: None. CONCLUSION: 1. No significant carotid flow-limiting stenosis. 2. Antegrade vertebral artery flow bilaterally. Jonnathan Ronquillo MD on September 15, 2017 at 11:43 Board Certified Radiologist. This report was verified electronically.
--- NOTE | 2017-09-15 18:02 | TR ---
Date Performed: 09/15/2017 Time Performed: 08:33:06 DOCTOR: Celia Lang DRUG LIST: CLINICAL HISTORY: ANGINA REASON FOR TEST: Angina REASON FOR ENDING: OBSERVATION: CONCLUSION: Lexiscan stress test was performed under standard four minute protocol. Radionuclid e was injected one minute prior to ending the test. No electrocardiographic abormalities were present to suggest ischemia. Nuclear imaging and interpretation are pending. COMMENTS:
--- NOTE | 2017-09-15 18:04 | EKG ---
Date Performed: 09/15/2017 Time Performed: 04:07:12 PTAGE: 72 years EKG: Sinus rhythm WITH FREQUENT VENTRICULAR PREMATURE COMPLEXES ST DEVIATION AND MODERATE T-WAVE ABNORMALITY, CONSIDER LATERAL ISCHEMIA ABNORMAL ECG Since PREVIOUS TRACING , no significant change noted PREVIOUS TRACIN09/14/2017 16.16 DOCTOR: Eddi Mathew Interpretating Date/Time 09/15/2017 19:35:34
--- NOTE | 2017-09-15 18:10 | EKG ---
Date Performed: 09/14/2017 Time Performed: 16:16:59 PTAGE: 72 years EKG: SINUS BRADYCARDIA WITH OCCASIONAL VENTRICULAR PREMATURE COMPLEXES ST DEVIATION AND MODERATE T-WAVE ABNORMALITY, CONSIDER ANTEROLATERAL ISCHEMIA ABNORMAL ECG Since PREVIOUS TRACING , no significant change noted PREVIOUS TRACIN12/04/2014 22.54 DOCTOR: Eddi Mathew Interpretating Date/Time 09/15/2017 19:35:17
[2017-09-15] MEDS ORDERED: traZODone HCL 50 MG TAB PO SCH (21:00)
[2017-09-15] MEDS ORDERED: lamoTRIgine 100 MG TAB PO SCH (21:00)
== END 2017-09-15 13:46 | disposition home or self-care (01) ==
LOC: PHED 14:22 → PHEDA 19:53 → PH3A 21:47
PROVIDERS: ADMIT Family Medicine; ATTEND Family Medicine
DX: R07.89 Other chest pain (principal); R55 Syncope and collapse; R42 Dizziness and giddiness; R20.0 Anesthesia of skin; R20.2 Paresthesia of skin; R51 Headache; R06.02 Shortness of breath; R00.1 Bradycardia, unspecified; I25.119 Atherosclerotic heart disease of native coronary artery with unspecified angina pectoris; I12.9 Hypertensive chronic kidney disease with stage 1 through stage 4 chronic kidney disease, or unspecified chronic kidney disease; E11.22 Type 2 diabetes mellitus with diabetic chronic kidney disease; N18.3 Chronic kidney disease, stage 3 (moderate); E11.42 Type 2 diabetes mellitus with diabetic polyneuropathy; E78.00 Pure hypercholesterolemia, unspecified; K21.9 Gastro-esophageal reflux disease without esophagitis; G47.30 Sleep apnea, unspecified; F41.9 Anxiety disorder, unspecified; M19.90 Unspecified osteoarthritis, unspecified site; Z79.899 Other long term (current) drug therapy; Z98.84 Bariatric surgery status
CPT/HCPCS: 70450; 78452; 80048; 80053; 81001; 82550; 84484; 85025; 85610; 85730; 93005; 93017; 93306; 93880; 96360; 96361; 97162; 99285; A9502; G0378; G8987; G8988; J2785; J7040